=== PATIENT | male | born 2000 | race American Indian/Alaskan Native ===

== ENCOUNTER 2020-12-21 08:18 | Emergency (ER) | payer MEDICAID ==
[2020-12-21 08:43] VITALS: BP 102/63
[2020-12-21] MEDS ORDERED: PENICILLIN G BENZATHINE 1.2 MILLION UNIT/2 ML INJ IM ONE (11:56)
--- NOTE | 2020-12-21 11:56 | Emergency Department Report ---
ED General Adult HPI - General Chief complaint: Medical Clearance Stated complaint: SYPHILLIS COUNT RISING Time Seen by Provider: 12/21/20 11:02 Source: patient Mode of arrival: Ambulatory Limitations: No Limitations - History of Present Illness Initial comments: 20 year old male with known hx of syphyllis presents to ED because he was i informed yesterday by primary care doctor at the [facility] that his syphilis count was rising. Patient states that he was told that he needed to follow-up at the office in the next couple days but he states that when he heard the news he was afraid and plus he did not have no way of getting to the clinic. He called EMS but EMS told him that they could not take him to the doctors office and so he was brought here. Patient denies any rash, dysuria, abdominal pain or any symptoms at this time. He denies any new sexual partners since he was diagnosed with syphilis a year ago. MD Complaint: Syphillis count rising -: days(s) (1) - Related Data Allergies Allergy/AdvReac Type Severity Reaction Status Date / Time No Known Allergies Allergy Unverified 12/21/20 08:39 ED Review of Systems ROS: Stated complaint: SYPHILLIS COUNT RISING Other details as noted in HPI Comment: All other systems reviewed and negative Constitutional: denies: chills, fever ENT: denies: ear pain, throat pain, dental pain, hearing loss, epistaxis, congestion Respiratory: denies: cough, shortness of breath, wheezing Cardiovascular: as per HPI. denies: chest pain, palpitations, dyspnea on exertion, orthopnea, edema, syncope, paroxysmal nocturnal dyspnea Endocrine: no symptoms reported Gastrointestinal: denies: abdominal pain, nausea, diarrhea, constipation, hematemesis, melena Genitourinary: denies: urgency, dysuria Skin: denies: rash, lesions, change in color, change in hair/nails, pruritus Neurological: denies: headache, weakness, numbness, paresthesias, confusion, abnormal gait, vertigo Psychiatric: denies: anxiety, depression, auditory hallucinations, visual hallucinations, homicidal thoughts, suicidal thoughts Hematological/Lymphatic: denies: easy bleeding, easy bruising, swollen glands ED Past Medical Hx - Past Medical History Previous Medical History?: Yes Hx Asthma: Yes - Surgical History Past Surgical History?: No ED Physical Exam - General Limitations: No Limitations General appearance: alert, in no apparent distress, anxious - Head Head exam: Present: atraumatic, normocephalic, normal inspection - Eye Eye exam: Present: normal appearance, PERRL, EOMI Pupils: Present: normal accommodation - Respiratory Respiratory exam: Present: normal lung sounds bilaterally. Absent: respiratory distress - Cardiovascular Cardiovascular Exam: Present: regular rate, normal rhythm, normal heart sounds - GI/Abdominal GI/Abdominal exam: Present: soft. Absent: distended, tenderness, guarding, rebound, rigid - Neurological Exam Neurological exam: Present: alert, oriented X3, CN II-XII intact, normal gait - Psychiatric Psychiatric exam: Present: normal affect, normal mood - Skin Skin exam: Present: intact ED Course Vital Signs 12/21/20 08:43 Temperature 98.1 F Pulse Rate 76 Respiratory 18 Rate Blood Pressure 102/63 O2 Sat by Pulse 99 Oximetry ED Medical Decision Making - Medical Decision Making 1147: Called the clinic that patient went to ([phone]) and spoke to the medical billing and coding specialist, Keely. She reported to me the patient came to the clinic for the first time December 13. He reported to them that he had known history of syphilis and he did bring in some old labs but those labs did not include any STD testing and showed the right a panel of blood tests including RPR. She re ported to me that patient RPR was 1.2 and need a confirmatory test which showed that it was reactive and so to call him yesterday requesting that he come to the clinic to review his results and to get a penicillin shot. He reported to me that patient's was being seeing by Dr Ervin who reviewed the results and requested that patient have a follow-up visit to come into the clinic. Patient currently is anxious, and is very concerned about his RPR results especially since he states that the last time he had it checked they were fine after receiving a penicillin shot. He claimed that he does not have a ride or any way to make it up to the clinic. Informed patient that we will go ahead and give him a dose of the Bicillin here in the ER but it is important that he follows up with the clinic for continued monitoring of his syphilis levels and any additional treatment if needed. He is well-appearing and nontoxic and not in any acute pain or respiratory distress. His vital signs are stable. Patient expressed understanding of instructions and agree with plan. Patient was stable at time of discharge Critical care attestation.: If time is entered above; I have spent that time in minutes in the direct care of this critically ill patient, excluding procedure time. ED Disposition Clinical Impression: Syphilis Disposition: DC- TO HOME OR SELFCARE Is pt being admited?: No Does the pt Need Aspirin: No Condition: Stable Instructions: Syphilis Additional Instructions: Recommend that you follow-up with your doctor, Dr. Ervin next week for continued evaluation and treatment of your syphilis. Recommend that you practice safe sex. Return to the ER if your symptoms changes or worsens in any way. Referrals: PRIMARY CARE, [Primary Care Provider] - 3-5 Days Time of Disposition: 12:17
== END 2020-12-21 12:35 | disposition home or self-care (01) ==
LOC: ED 08:18
DX: A53.9 Syphilis, unspecified (principal); J45.909 Unspecified asthma, uncomplicated
CPT/HCPCS: 96372; 99282; J0561

== ENCOUNTER 2021-02-01 16:22 | Emergency (ER) | payer MEDICAID ==
[2021-02-01] MEDS ORDERED: ZIPRASIDONE MESYLATE 20 MG VIAL IM ONE (16:34)
--- NOTE | 2021-02-01 17:13 | Emergency Department Report ---
ED Psych HPI - General Stated Complaint: MENTAL HEALTH Time Seen by Provider: 02/01/21 17:11 Source: police - History of Present Illness Initial Comments: Patient is a 20 years old male with history of schizophrenia. Patient brought to the emergency room by [facility] [employer], [place]. Patient is very agitated and police reported that patient was trying to stab himself. Patient started arguing with his [facility] staff. Upon arrival to the ER patient is very agitated with flight of ideas. Patient is in acute psychosis. Patient received Geodon 20 mg IM for chemical sedation. Complaint: suicidal ideation, altered mental status Associated Psychiatric Symptoms: suicidal ideation Associated Symptoms: denies other symptoms If Self Harm: admits thoughts of, has acted on plan, self-inflicted trauma - Related Data Allergies Allergy/AdvReac Type Severity Reaction Status Date / Time No Known Allergies Allergy Unverified 12/21/20 08:39 ED Review of Systems ROS: Stated complaint: MENTAL HEALTH Other details as noted in HPI Comment: All other systems reviewed and negative Constitutional: denies: chills, fever Respiratory: denies: cough, shortness of breath, SOB with exertion Cardiovascular: denies: chest pain, palpitations Gastrointestinal: denies: abdominal pain, nausea, vomiting Musculoskeletal: denies: back pain Neurological: denies: headache, weakness Psychiatric: suicidal thoughts ED Past Medical Hx - Past Medical History Hx Asthma: Yes ED Physical Exam - General General appearance: alert, in no apparent distress, other (agitated) - Head Head exam: Present: atraumatic, normocephalic, normal inspection - Eye Eye exam: Present: normal appearance, PERRL - ENT ENT exam: Present: normal exam, normal orophraynx, mucous membranes moist - Neck Neck exam: Present: normal inspection, full ROM. Absent: tenderness, meningismus - Respiratory Respiratory exam: Present: normal lung sounds bilaterally - Cardiovascular Cardiovascular Exam: Present: regular rate, normal rhythm, normal heart sounds - GI/Abdominal GI/Abdominal exam: Present: soft, normal bowel sounds. Absent: distended, tenderness, guarding, rebound, rigid, organomegaly, mass, bruit, pulsatile mass, hernia - Extremities Exam Extremities exam: Present: normal inspection, full ROM, normal capillary refill. Absent: tenderness - Back Exam Back exam: Present: normal inspection, full ROM. Absent: CVA tenderness (R), CVA tenderness (L) - Neurological Exam Neurological exam: Present: alert, oriented X3, CN II-XII intact, normal gait, reflexes normal. Absent: motor sensory deficit - Psychiatric Psychiatric exam: Present: agitated, anxious, manic, suicidal ideation. Absent: homicidal ideation - Skin Skin exam: Present: warm, intact, normal color ED Course Vital Signs 02/01/21 02/01/21 02/01/21 17:20 17:21 23:15 Temperature 97.9 F Pulse Rate 83 Respiratory 20 16 Rate Blood Pressure 110/60 [Left] O2 Sat by Pulse 97 97 98 Oximetry 02/02/21 02/02/21 02/02/21 02:10 08:01 13:21 Temperature 97.3 F L 97.9 F Pulse Rate 72 77 Respiratory 16 18 Rate Blood Pressure 100/61 101/55 [Left] O2 Sat by Pulse 99 100 100 Oximetry ED Medical Decision Making - Lab Data Result diagrams: 02/01/21 23:59 02/01/21 23:59 Critical care attestation.: If time is entered above; I have spent that time in minutes in the direct care of this critically ill patient, excluding procedure time. ED Disposition Clinical Impression: Bipolar 1 disorder Disposition: DC-01 TO HOME OR SELFCARE Is pt being admited?: No Condition: Stable Instructions: Bipolar 1 Disorder Additional Instructions: Professional and Agency Contacts To help Resolve Crises(29/01) [place] Crisis Line: Suicide Prevention Line: Crisis Text Line: Text START to 023936 Emergency: 911 Outpatient COMMUNITY Behavioral Health Resources: JULIO CESAR: [facility] [address] [place] [id number] [place]: [facility] - [address] [address] JUAN: [facility] - [address] [place] [address] Sunday thru Sunday - 8am - 5pm [facility]: [facility] Address: [address], [place] [address] ON[place]: [facility] Address: [address], [place] [address] Sunday thru Sunday- 7am-2pm [facility] Address: [address], [place] [address] Sunday thru Sunday: 8:30AM-5PM OUTPATIENT MENTAL HEALTH RESOURCES [facility], [address], [place], [place] [id number] [facility] Lion Herrera MD: [address] [facility] [address] [place], [place] [id number] [facility]: [address] [place], [place] [id number] [facility] [address] [place], [place] [id number] [phone] [facility]: [address] [facility] [address] [place] [address] [facility]: [address] [facility] [address] [facility] [id number] [facility]: [address] [place] [address] Tarik Gillespie MD: [address] [facility] [id number] [facility]: [address] [place], [place] [id number] [phone] [place] CRISIS AND ACCESS LINE: * Referrals: [facility] [Outside] - 3-5 Days PRIMARY CARE, [Primary Care Provider] - 3-5 Days Forms: Work/School Release Form(ED)
[2021-02-01 20:15] LABS: Bilirubin,Urine NEG (Negative); Blood,Urine NEG (Negative); Color,Urine Colorless (Yellow); Protein,Urine <15 mg/dL mg/dL (Negative); Urobilinogen,Urine < 2.0 mg/dL (<2.0); WBC,Urine < 1.0 /HPF (0.0-6.0)
[2021-02-01 20:23] LABS: Amphetamine Screen,Urine Negative; Benzodiazepines Screen,Urine Negative; Cannabinoid Screen,Urine Negative; Cocaine Screen,Urine Negative; Methadone Screen,Urine Negative; Opiate Screen,Urine Negative
[2021-02-02 00:17] LABS: Basophils # (Auto) 0.1 K/mm3 (0.0-0.1); Basophils % (Auto) 0.7 % (0.0-1.8); Eosinophils # (Auto) 0.3 K/mm3 (0.0-0.4); Eosinophils % (Auto) 3.4 % (0.0-4.3); Hematocrit 46.4 % (35.5-45.6); Hemoglobin 15.6 gm/dl (11.8-15.2); Lymphocytes # (Auto) 3.7 K/mm3 (1.2-5.4); Lymphocytes % (Auto) 41.6 % (13.4-35.0); Mean Corpuscular HGB Conc 34 % (32-34); Mean Corpuscular Volume 91 fl (84-94); Monocytes # (Auto) 0.4 K/mm3 (0.0-0.8); Platelet Count 244 K/mm3 (140-440); Red Blood Count 5.08 M/mm3 (3.65-5.03); Red Cell Distribution Width 14.3 % (13.2-15.2)
[2021-02-02 00:36] LABS: BUN/Creatinine Ratio 11; Blood Urea Nitrogen 11 mg/dL (9-20); Calcium 9.9 mg/dL (8.4-10.2); Hemolysis Index 5
[2021-02-02 00:37] LABS: Alanine Aminotransferase 13 units/L (7-56); Albumin 4.8 g/dL (3.9-5)
[2021-02-02 00:39] LABS: Bilirubin,Direct < 0.2 mg/dL (0-0.2)
[2021-02-02] MEDS ORDERED: HALOPERIDOL LACTATE 5 MG/1 ML INJ IM PRN (05:59)
[2021-02-02] MEDS ORDERED: LORazepam 2 MG/ML VIAL IM PRN (05:59)
[2021-02-02 08:02] VITALS: BP 101/55
--- NOTE | 2021-02-02 11:52 | Consultation ---
History of Present Illness - Reason for Consult Consult date: 02/02/21 Reason for consult: mental health eval - History of Present Psychiatric Illness ED Note: Patient is a 20 years old male with history of schizophrenia. Patient brought to the emergency room by [facility] [employer], g[place]. Patient is very agitated and police reported that patient was trying to stab himself. Patient started arguing with his [facility] staff. Upon arrival to the ER patient is very agitated with flight of ideas. Patient is in acute psychosis. Patient received Geodon 20 mg IM for chemical sedation. Josie Trotter is a 20 year old male with a history of ADHD, Schizophrenia, Bipolar disorder who presents to ED with psychosis. In my interview with the patient, he is calm and cooperative. He states that he was " kicked out " by his landlord, he states " she pissed me off to where I was cutting my arms." The patient reports being compliant with psychotropic medications. He denies any current suicidal/ homicidal ideation and denies hallucinations. PAST PSYCHIATRIC HISTORY Diagnoses: ADHD, Schizophrenia, Bipolar Disorder Suicide attempts or Self-harm behavior: Denies Prior psychiatric hospitalizations: Yes Substance Abuse history: Denies Previous psychiatric medications tried: Abilify Outpatient treatment: Yes SOCIAL HISTORY Marital Status: Single Living Arrangements: Lives alone Employment Status: unemployed Access to guns/weapons: Denied Education: 11th grade History of Abuse: Denied Legal History: None reported REVIEW OF SYSTEMS Constitutional: Negative for weight loss ENT: Negative for stridor Respiratory: Negative for cough or hemoptysis All other systems reviewed and are negative MENTAL STATUS EXAMINATION General Appearance and Behavior: Age appropriate, dressed appropriately, calm and cooperative Cooperation: Participating Psychomotor Behavior: psychomotor normal Mood: calm Affect and affective range: Congruent with stated mood Thought Process: Goal directed Thought Content: Not SI Speech: Normal volume, Regular rate and rhythm, Intellectual Functioning: Average Suicidal Ideation: Denied Homicidal Ideation: Denied Hallucinations: Denied Delusions: None elicited Impulse Control: Unimpaired Insight and Judgment: Limited insight and judgment, Memory: Normal Attention: Undivided Orientation: Alert, oriented Assessment and Plan (1) Bipolar disorder, unspecified (2) Treatment plan Risks, benefits and alternatives of medications discussed with the patient, questions answered and consent obtained from patient. PSYCHOTHERAPY: Supportive psychotherapy provided MEDICAL: Per primary team DELIRIUM PRECAUTIONS: Please re-orient patient frequently, keep lights on during the day, and minimize benzodiazepines and opiates as these medications could worsen patient's confusion. TIMEKEEPER: Per medical team DISPOSITION: Do not recommend acute inpatient psychiatric hospitalization. FOLLOW-UP: Will sign off. Patient knows to follow up with psychiatric outpatient and to call the crisis hotline or go the ER if suicidal/ homicidal or any endangering ideas arise. Thank you for the consult. Please contact with any questions and/or concerns. Case staffed with Dr. Elam Medications and Allergies Allergies Allergy/AdvReac Type Severity Reaction Status Date / Time No Known Allergies Allergy Unverified 12/21/20 08:39 Active Meds: Active Medications Haloperidol Lactate (Haloperidol Lactate 5 Mg/1 Ml Inj) 5 mg IM Q6HR PRN PRN Reason: Agitation Last Admin: 02/02/21 06:18 Dose: 5 mg Documented by: Lorazepam (Lorazepam 2 Mg/Ml Vial) 2 mg IM Q4HR PRN PRN Reason: Agitation Mental Status Exam - Vital signs Last Vital Signs Temp 97.9 F 02/02/21 08:01 Pulse 77 02/02/21 08:01 Resp 18 02/02/21 08:01 BP 101/55 02/02/21 08:01 Pulse Ox 100 02/02/21 08:01 Results Result Diagrams: 02/01/21 23:59 02/01/21 23:59 Abnormal lab results 02/01/21 02/01/21 02/01/21 Range/Units 23:59 23:59 23:59 RBC 5.08 H (3.65-5.03) M/mm3 Hgb 15.6 H (11.8-15.2) gm/dl Hct 46.4 H (35.5-45.6) % Lymph % (Auto) 41.6 H (13.4-35.0) % Salicylates < 0.3 L (2.8-20.0) mg/dL Acetaminophen 5.0 L (10.0-30.0) ug/mL All other labs normal.
== END 2021-02-02 13:39 | disposition home or self-care (01) ==
LOC: ED 16:22
DX: F31.9 Bipolar disorder, unspecified (principal); Z20.822 Contact with and (suspected) exposure to COVID-19; R45.851 Suicidal ideations; J45.909 Unspecified asthma, uncomplicated
CPT/HCPCS: 36415; 80048; 80076; 80307; 81001; 85025; 96372; 99284; J1630; J3486; U0003; 80320; G0480